=== PATIENT | female | born 1945 | race Caucasian/White ===

== ENCOUNTER 2024-06-25 21:04 | Emergency (ER) | payer MEDICARE, SELFPAY ==
[2024-06-25 21:08] VITALS: BP 153/85; PULSE 78; RESP 20; TEMP 36.9; O2SAT 96; BMI 34.0
[2024-06-25] MEDS: LIDOCAINE 1%-EPI 1:100,000 20 ML INFILTRATI (21:15)
--- NOTE | 2024-06-25 21:28 | ED.WOUNDLAC ---
HPI - Wound/Laceration General Chief Complaint: Laceration/Wound Stated Complaint: L thumb Lac with a glass Time Seen by Provider: 06/25/24 21:12 History of Present Illness HPI narrative: This 78-year-old female comes in with a laceration to her left thumb. 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 She is not on anticoagulants but states that the bleeding will not stop. She is up-to-date on her tetanus status. She also has a small little superficial laceration on the distal portion of her left little finger. Related Data Allergies Allergy/AdvReac Type Severity Reaction Status Date / Time No Known Drug Allergies Allergy Verified 06/25/24 21:10 Review of Systems Status of ROS: Reports: 10 or more systems reviewed and unremarkable except as noted in History and below Narrative: Constitutional: No fevers, no weight gain or loss. Eyes: No discharge. No vision changes. HENT: No congestion, no sore throat, no ear pain. Cardiovascular: No chest pain, no palpitations. Respiratory: No shortness of breath, no wheezes, no cough. Gastrointestinal: No abdominal pain, no vomiting, no diarrhea. Genitourinary: No dysuria, no hematuria. Musculoskeletal: Normal range of motion. Skin: No rashes, no pruritis. Neurological: No dizziness, weakness, sensory change, speech change. Endo/Heme/Allergies: No bruising or bleeding. No polydipsia. Pysch: no suicidality, no anxiety, no insomnia. All other systems reviewed and are negative. Exam Narrative: Exam Narrative: Constitutional: Well-developed, well-nourished, no acute distress. HEENT: Normocephalic, atraumatic. Neck: Normal range of motion. Nontender. Supple. Heart: Regular. No murmurs. Normal rate. Intact distal pulses. Lungs: Clear to auscultation. No chest discomfort. No wheezes, rhonchi, or rales. Abdomen: Normal bowel sounds. Nontender. No rebound tenderness. Genitalia: Deferred. Back: No midline tenderness. Normal range of motion. Extremities: Normal range of motion. 2 cm linear laceration on the left thumb. Skin: Intact. No rash. Warm. No erythema or pallor. Neurologic: No altered sensation. No weakness. Alert and oriented. Psychiatric: No suicidality. No anxiety or depression. No insomnia. Nursing notes and vitals signs are reviewed. Const: Vital Signs, click to edit/add: Vital Signs - 24 hr 06/25/24 21:08 Temperature 98.5 F Pulse Rate [Right Pulse Oximeter] 78 Respiratory Rate 20 Blood Pressure [Ri ght Upper Arm] 153/85 H Pulse Oximetry 96 Oxygen Delivery Me thod Room Air Course Vital Signs Vital signs: Initial Vital Signs Temperature 98.5 F 06/25/24 21:08 Temperature Source Temporal Artery Scan 06/25/24 21:08 Pulse Rate 78 06/25/24 21:08 Respiratory Rate 20 06/25/24 21:08 Blood Pressure 153/85 H 06/25/24 21:08 Blood Pressure Mean 107 H 06/25/24 21:08 Blood Pressure Position Sitting 06/25/24 21:08 Pulse Oximetry 96 06/25/24 21:08 Oxygen Delivery Method Room Air 06/25/24 21:08 Vital Signs Temperature 98.5 F 06/25/24 21:08 Pulse Rate 78 06/25/24 21:08 Respiratory Rate 20 06/25/24 21:08 Blood Pressure 153/85 H 06/25/24 21:08 Pulse Oximetry 96 06/25/24 21:08 Oxygen Delivery Method Room Air 06/25/24 21:08 Temperature 98.5 F 06/25/24 21:08 Pulse Rate 78 06/25/24 21:08 Respiratory Rate 20 06/25/24 21:08 Blood Pressure 153/85 H 06/25/24 21:08 Pulse Oximetry 96 06/25/24 21:08 Oxygen Delivery Method Room Air 06/25/24 21:08 MDM - Wound/Laceration MDM Narrative Medical decision making narrative: This patient has the wound on her left thumb that continues to bleed. After anesthesia with 1% lidocaine with epinephrine the wound was cleansed and explored to its base. I placed 3 sutures in interrupted fashion using 4.0 Ethilon suture. The wound edges are nicely approximated and there is no ongoing bleeding. The wound was covered with a Band-Aid and instructions regarding wound care were given. Discharge Plan Discharge Clinical Impression: Laceration Patient Disposition: Home, Self-Care Condition: Improved Additional Instructions: Keep wound clean and dry. Return to clinic or urgent care in 7-10 days for suture removal. Stand Alone Forms: [facility] Info Instructions
[2024-06-25 21:37] VITALS: BP 148/84; PULSE 70; RESP 20; TEMP 36.9; O2SAT 96
[2024-06-25 21:38] VITALS: BP 148/84; PULSE 70; RESP 20; TEMP 36.9
== END 2024-06-25 21:40 | disposition home or self-care (01) ==
LOC: ED 21:39
PROVIDERS: Emergency Provider Emergency Medicine Emergency Medical Services
DX: S61.012A Laceration without foreign body of left thumb without damage to nail, initial encounter (principal); W25.XXXA Contact with sharp glass, initial encounter; Y93.G1 Activity, food preparation and clean up
CPT/HCPCS: 12001; 99283; 99284